=== PATIENT | male | born 1970 | race Two or more races ===

== ENCOUNTER 2019-02-14 18:15 | Emergency (ER) | payer OTHER ==
[~2019-02-14] VITALS: Ht 175.3 cm; Wt 82.0 kg
[2019-02-14] MEDS ORDERED: KETOROLAC 60MG/2ML VIAL IM ONE (19:00)
[2019-02-14 19:37] VITALS: BP 139/92
== END 2019-02-14 19:40 | disposition home or self-care (01) ==
LOC: ER 18:31
DX: M54.5 Low back pain (principal); V49.49XA Driver injured in collision with other motor vehicles in traffic accident, initial encounter; Y93.89 Activity, other specified; Y92.89 Other specified places as the place of occurrence of the external cause; Y99.8 Other external cause status
CPT/HCPCS: 96372; 99283; J1885; Z7610

== ENCOUNTER 2023-11-21 18:04 | Emergency (ER) | payer MEDICAID, OTHER ==
[~2023-11-21] VITALS: Ht 175.3 cm; Wt 79.0 kg
[2023-11-21 18:05] VITALS: O2SAT 100
[2023-11-21] MEDS ORDERED: CYCL5TAB MT (19:08)
[2023-11-21] MEDS ORDERED: IBUP-2030 MT (19:08)
[2023-11-21] MEDS ORDERED: IBUPROFEN 800MG TABLET PO ONE (19:15)
[2023-11-21] MEDS: IBUPROFEN 400MG TABLET PO NR (19:15)
[2023-11-21 19:27] VITALS: BP 145/78; PULSE 85; RESP 16; TEMP 98.8
== END 2023-11-21 19:15 | disposition home or self-care (01) ==
LOC: ER 18:23
DX: S16.1XXA Strain of muscle, fascia and tendon at neck level, initial encounter (principal); V49.9XXA Car occupant (driver) (passenger) injured in unspecified traffic accident, initial encounter; Y93.89 Activity, other specified; Y92.89 Other specified places as the place of occurrence of the external cause; Y99.8 Other external cause status
CPT/HCPCS: 99283